=== PATIENT | male | born 1950 | race Caucasian/White ===

== ENCOUNTER 2024-08-07 14:05 | Emergency (ER) | payer OTHER, MEDICARE | END 2024-08-07 16:55 | disposition home or self-care (01) | LOC: JP.ED 14:05 | DX: S43.102A Unspecified dislocation of left acromioclavicular joint, initial encounter (principal); V28.09XA Other motorcycle driver injured in noncollision transport accident in nontraffic accident, initial encounter; Y93.55 Activity, bike riding | CPT/HCPCS: 73000-LT; 99283 ==